=== PATIENT | male | born 1950 | race Caucasian/White ===

== ENCOUNTER 2017-09-30 11:34 | Outpatient (CLI) | payer MEDICARE, OTHER ==
[2017-09-30 13:17] LABS: BASOPHILS % 0.8 (0.0-1.5); EOSINOPHILS % 3.4 % (0.0-6.8); MEAN CORPUSCULAR HEMOGLOBIN 30.9 pg (28.0-34.0); MEAN CORPUSCULAR VOLUME 91.7 fl (80.0-100.0); MONOCYTES % 4.4 % (0.0-11.0)
[2017-09-30 13:36] LABS: eGFR (African) > 60; eGFR (Non-African) > 60
[2017-09-30 14:32] LABS: COLOR,URINE YELLOW (YELLOW)
[2017-09-30 14:33] LABS: APPEARANCE,URINE CLEAR (CLEAR); OCCULT BLOOD,URINE TRACE-INTACT (NEGATIVE); UROBILINOGEN URINE 0.2 Eu (0.2-1.0)
== END 2017-09-30 13:26 ==
LOC: LAB 11:34
PROVIDERS: ATTEND Nurse Practitioner Family
DX: Z00.00 Encounter for general adult medical examination without abnormal findings (principal)
CPT/HCPCS: 36415; 80053; 80061; 81002; 84439; 84443; 85025